=== PATIENT | female | born 1945 | race Caucasian/White ===

== ENCOUNTER 2017-05-05 08:54 | Outpatient (CLI) | payer MEDICARE, BC ==
[~2017-05-05 08:54] MED LIST: CALC-829 PO; CHOL400T PO; DOCU-28 PO; OMEP40CA37 PO; SYN0.088T PO; [UNRECOGNIZED DRUG - CODE] PO
[2017-05-05 09:50] LABS: BASOPHILS % (AUTO) 0.3 % (0-1); EOSINOPHILS # (AUTO) 0.2 X10'3 (0-0.9); EOSINOPHILS % (AUTO) 2.6 % (0-6); HEMATOCRIT 39.3 % (35.0-45.0); HEMOGLOBIN 13.1 g/dl (12.0-16.0); LYMPHOCYTES # (AUTO) 1.8 X10'3 (1.1-4.8); MEAN CORPUSCULAR HEMOGLOBIN 28.8 PG (27.0-31.0); MEAN CORPUSCULAR HGB CONC 33.3 % (33.0-36.5); MEAN CORPUSCULAR VOLUME 86.5 FL (78-98); MEAN PLATELET VOLUME 8.7 FL (7.4-10.4); MONOCYTES # (AUTO) 0.4 X10'3 (0-0.9); MONOCYTES % (AUTO) 6.1 % (2-12); NEUTROPHILS # (AUTO) 4.4 X10'3 (1.8-7.7); PLATELET COUNT 275 X10'3 (140-440); RED BLOOD COUNT 4.54 X10'6 (4.20-5.60); RED CELL DISTRIBUTION WIDTH 13.5 % (11.5-14.5); WHITE BLOOD COUNT 6.8 X10'3 (4.5-11.0)
[2017-05-05 10:38] LABS: ALANINE AMINOTRANSFERASE 26 U/L (12-78); ALBUMIN 3.8 G/DL (3.4-5.0); ALBUMIN/GLOBULIN RATIO 1.2 (1.1-1.5); ALKALINE PHOSPHATASE 91 IU/L (46-116); ASPARTATE AMINO TRANSFERASE 18 U/L (10-37); BILIRUBIN,TOTAL 0.6 MG/DL (0.1-1.0); BLOOD UREA NITROGEN 17 MG/DL (7-18); BUN/CREATININE RATIO 18.9 (6.6-38.0); CHLORIDE 106 MMOL/L (99-107); GLUCOSE 97 MG/DL (70-104); POTASSIUM 4.1 MMOL/L (3.5-5.1); TOTAL CARBON DIOXIDE 27.4 MMOL/L (24-32); TOTAL PROTEIN 6.9 G/DL (6.4-8.2); eGFR 61 ML/MIN
[2017-05-05 10:41] LABS: ANION GAP 6 (8-16); SODIUM 139 MMOL/L (135-145)
[2017-05-05 11:44] LABS: CLARITY,URINE TURBID (Clear); COLOR,URINE YELLOW (Yellow); GLUCOSE, URINE NEGATIVE (Neg); KETONES,URINE NEGATIVE (Neg); LEUKOCYTE ESTERASE ,URINE MODERATE (Neg); NITRITES, URINE NEGATIVE (Neg); OCCULT BLOOD,URINE TRACE-INTACT (Neg); PH,URINE 5.5 (4.8-8.0); PROTEIN,URINE TRACE mg/dl (Neg)
[2017-05-05 11:48] LABS: UA COLLECTION TYPE CLN CATCH MIDSTREAM
[2017-05-05 11:50] LABS: MUCUS STRANDS MANY /LPF (Neg); SQUAMOUS EPITHELIAL CELL,UR MANY /LPF (FEW)
[2017-05-05 11:54] LABS: TRANSITIONAL EPI CELLS,URINE FEW /HPF; WBC CLUMPS,URINE FEW /HPF (NEGATIVE)
[2017-05-05 11:55] LABS: AMORPHOUS URATES 1+; BACTERIA,URINE FEW /HPF (Neg); RBC,URINE 0-2 /HPF (0-2); WBC,URINE 30-50 /HPF (0-4)
== END 2017-05-05 23:59 | disposition home or self-care (01) ==
LOC: LAB 08:54
PROVIDERS: ATTEND Specialist
DX: Z01.818 Encounter for other preprocedural examination (principal); N39.0 Urinary tract infection, site not specified; Z51.81 Encounter for therapeutic drug level monitoring; Z90.89 Acquired absence of other organs; Z90.710 Acquired absence of both cervix and uterus
CPT/HCPCS: 36415; 80053; 81001; 85025; 85610; 87070

== ENCOUNTER 2017-05-19 05:17 | Inpatient (IN) | payer MEDICARE, BC ==
[~2017-05-19] VITALS: Ht 165.1 cm; Wt 95.0 kg
[2017-05-19] VITALS (19 sets, daily range): BP systolic 84–124; BP diastolic 36–80
[~2017-05-19 05:17] MED LIST changes: -CHOL400T PO; +LEVO125T PO; -OMEP40CA37 PO; -SYN0.088T PO; +SYN0.112T PO; +ringers solution, lacted 1,000 ML IV SCH
[2017-05-19] MEDS ORDERED: famotidine 20mg tablet PO ONE (05:30)
[2017-05-19] MEDS ORDERED: gabapentin 300mg capsule PO ONE (05:30)
[2017-05-19] MEDS ORDERED: acetaminophen 325mg tablet PO ONE (05:30)
[2017-05-19] MEDS ORDERED: oxyCODONE SR 10mg (sust. release) tab PO ONE (05:30)
[2017-05-19] MEDS ORDERED: tranexamic acid inj. 1,000 MG in normal saline 100ml IV soln 90 ML IV ONE (05:30)
[2017-05-19] MEDS ORDERED: ceFAZolin 2gm in dextrose, iso 100 ML IV ONE (05:30)
[2017-05-19] MEDS ORDERED: vancomycin inj 1,500 MG in normal saline 300ml IV soln IV ONE (05:30)
[2017-05-19] MEDS ORDERED: LIDOcaine 1% (10mg/ml) 2ml vial ONE (06:04)
[2017-05-19] MEDS ORDERED: ROPIVAcaine 0.5% (5mg/ml) 30ml vial ONE ×2 (06:36→09:14)
[2017-05-19] MEDS ORDERED: bacitracin inj 150,000 UNIT in sodium chloride irrig. sol 3,000 ML IR ONE (07:00)
[2017-05-19] MEDS ORDERED: MORPHINE SULFATE/PF 0.5 MG/ML 10ML AMPUL ONE (07:24)
[2017-05-19] MEDS ORDERED: tetracaine 1% (10mg/ml) pres. free inj. ONE (07:24)
[2017-05-19] MEDS ORDERED: fentaNYL/PF 50MCG/1 ML 2ML syringe ONE (07:27)
[2017-05-19] MEDS ORDERED: MIDAZolam 1mg/ml 10ml vial ONE (07:27)
[2017-05-19] MEDS ORDERED: naloxone 2mg/2ml inj 2 MG in normal saline 500ml IV soln 500 ML IV PRN (08:48)
[2017-05-19] MEDS ORDERED: ringers solution, lacted 1,000 ML IV SCH (08:48)
[2017-05-19] MEDS ORDERED: ondansetron/PF 4mg/2ml inj IV PRN ×3 (08:50→09:50)
[2017-05-19] MEDS ORDERED: proCHLORperazine 10 MG/2 ml inj IV PRN (08:50)
[2017-05-19] MEDS ORDERED: meperidine/PF 25mg/ml syringe IV PRN ×3 (08:50)
[2017-05-19] MEDS ORDERED: diphenhydrAMINE 50 mg/ml inj IV PRN (08:50)
[2017-05-19] MEDS ORDERED: ceFAZolin 1000mg inj ONE (09:09)
[2017-05-19] MEDS ORDERED: propofol inj 20 ML IV ONE (09:10)
[2017-05-19] MEDS ORDERED: cloNIDine hcl/PF 100mcg/ml inj ONE (09:14)
[2017-05-19] MEDS ORDERED: diphenhydrAMINE 25mg capsule PO PRN ×2 (09:50)
[2017-05-19] MEDS ORDERED: bisacodyl 10mg suppository rectal RC PRN (09:50)
[2017-05-19] MEDS ORDERED: acetaminophen 325mg tablet PO PRN (09:50)
[2017-05-19] MEDS ORDERED: magnesium hydroxide 30ml (MOM) UD suspension PO PRN (09:50)
[2017-05-19] MEDS ORDERED: HYDROmorphone 1 mg/ml syringe IV PRN (09:50)
[2017-05-19] MEDS: potassium cl 20mEq in 1/2 NS 1,000 ML IV SCH ×3 (11:20→20:10)
[2017-05-19] MEDS: acetaminophen 325mg tablet PO SCH ×2 (13:04→20:06)
[2017-05-19] MEDS: docusate sod 100mg capsule PO SCH ×3 (13:04→20:06)
[2017-05-19] MEDS: gabapentin 300mg capsule PO SCH ×2 (13:04→20:06)
[2017-05-19] MEDS: cefazolin 1gm/NS 100mL 100 ML IV SCH (15:42)
[2017-05-19] MEDS ORDERED: vancomycin/NS 1 GM ADD-VANTAGE 250 ML IV SCH (20:00)
[2017-05-19] MEDS: ascorbic acid 500mg tablet PO SCH (20:06)
[2017-05-19] MEDS: sennosides 8.6mg tablet PO SCH (20:06)
[2017-05-20] MEDS: cefazolin 1gm/NS 100mL 100 ML IV SCH (00:30)
[2017-05-20 02:00] VITALS: BP 80/41
[2017-05-20] MEDS: acetaminophen 325mg tablet PO SCH ×4 (02:00→20:27)
[2017-05-20] MEDS: potassium cl 20mEq in 1/2 NS 1,000 ML IV SCH ×3 (05:01→16:08)
[2017-05-20] MEDS: oxyCODONE IR 5mg (immed. release) tablet PO PRN ×3 (05:01→14:33)
[2017-05-20 06:00] VITALS: BP 92/39
[2017-05-20 06:19] LABS: BASOPHILS % (AUTO) 0.6 % (0-1); EOSINOPHILS # (AUTO) 0.4 X10'3 (0-0.9); EOSINOPHILS % (AUTO) 5.2 % (0-6); HEMATOCRIT 33.9 % (35.0-45.0); HEMOGLOBIN 11.3 g/dl (12.0-16.0); LYMPHOCYTES # (AUTO) 1.2 X10'3 (1.1-4.8); LYMPHOCYTES % (AUTO) 18.3 % (21-51); MEAN CORPUSCULAR HEMOGLOBIN 28.7 PG (27.0-31.0); MEAN CORPUSCULAR HGB CONC 33.3 % (33.0-36.5); MEAN CORPUSCULAR VOLUME 86.1 FL (78-98); MEAN PLATELET VOLUME 9.1 FL (7.4-10.4); MONOCYTES # (AUTO) 0.5 X10'3 (0-0.9); MONOCYTES % (AUTO) 6.8 % (2-12); NEUTROPHILS # (AUTO) 4.7 X10'3 (1.8-7.7); NEUTROPHILS % (AUTO) 69.1 % (42-75); PLATELET COUNT 200 X10'3 (140-440); RED BLOOD COUNT 3.93 X10'6 (4.20-5.60); RED CELL DISTRIBUTION WIDTH 13.4 % (11.5-14.5); WHITE BLOOD COUNT 6.8 X10'3 (4.5-11.0)
[2017-05-20 06:33] LABS: INR 1.2 INR; PROTHROMBIN TIME 12.8 SECONDS (9.0-12.0)
[2017-05-20 06:41] LABS: ANION GAP 7 (8-16); CHLORIDE 105 MMOL/L (99-107); POTASSIUM 4.5 MMOL/L (3.5-5.1); SODIUM 140 MMOL/L (135-145); TOTAL CARBON DIOXIDE 28.5 MMOL/L (24-32)
[2017-05-20] MEDS: levoTHYROXINE 112mcg tablet PO SCH (07:33)
[2017-05-20] MEDS: ascorbic acid 500mg tablet PO SCH ×2 (07:33→20:27)
[2017-05-20] MEDS: docusate sod 100mg capsule PO SCH ×4 (07:34→20:27)
[2017-05-20] MEDS: anastrozole 1 MG tablet PO SCH (07:34)
[2017-05-20] MEDS: gabapentin 300mg capsule PO SCH ×3 (07:34→20:26)
[2017-05-20] MEDS: multivitamins, therapeutics tablet PO SCH (07:34)
[2017-05-20 10:00] VITALS: BP 121/55
[2017-05-20] MEDS ORDERED: warfarin 7.5mg tablet PO ONE (10:00)
[2017-05-20 14:00] VITALS: BP 152/66
[2017-05-20 18:30] VITALS: BP 111/50
[2017-05-20] MEDS: sennosides 8.6mg tablet PO SCH (20:27)
[2017-05-20 22:00] VITALS: BP 145/70
[2017-05-21] MEDS: acetaminophen 325mg tablet PO SCH ×2 (02:00→08:30)
[2017-05-21] MEDS: oxyCODONE IR 5mg (immed. release) tablet PO PRN ×4 (03:38→20:10)
[2017-05-21 06:00] VITALS: BP 142/67
[2017-05-21 06:22] LABS: BASOPHILS % (AUTO) 0.4 % (0-1); EOSINOPHILS # (AUTO) 0.4 X10'3 (0-0.9); EOSINOPHILS % (AUTO) 5.1 % (0-6); HEMATOCRIT 33.6 % (35.0-45.0); HEMOGLOBIN 11.5 g/dl (12.0-16.0); LYMPHOCYTES # (AUTO) 1.2 X10'3 (1.1-4.8); LYMPHOCYTES % (AUTO) 14.6 % (21-51); MEAN CORPUSCULAR HEMOGLOBIN 29.1 PG (27.0-31.0); MEAN CORPUSCULAR HGB CONC 34.3 % (33.0-36.5); MEAN CORPUSCULAR VOLUME 84.8 FL (78-98); MEAN PLATELET VOLUME 8.9 FL (7.4-10.4); MONOCYTES # (AUTO) 0.6 X10'3 (0-0.9); MONOCYTES % (AUTO) 7.7 % (2-12); NEUTROPHILS # (AUTO) 5.8 X10'3 (1.8-7.7); NEUTROPHILS % (AUTO) 72.2 % (42-75); PLATELET COUNT 207 X10'3 (140-440); RED BLOOD COUNT 3.96 X10'6 (4.20-5.60); RED CELL DISTRIBUTION WIDTH 13.4 % (11.5-14.5)
[2017-05-21 06:27] LABS: INR 1.5 INR; PROTHROMBIN TIME 15.6 SECONDS (9.0-12.0)
[2017-05-21] MEDS ORDERED: warfarin 5mg tablet PO ONE (07:00)
[2017-05-21] MEDS: gabapentin 300mg capsule PO SCH ×3 (07:26→20:10)
[2017-05-21] MEDS: docusate sod 100mg capsule PO SCH ×4 (07:26→20:10)
[2017-05-21] MEDS: ascorbic acid 500mg tablet PO SCH ×2 (07:27→20:10)
[2017-05-21] MEDS: multivitamins, therapeutics tablet PO SCH (07:27)
[2017-05-21] MEDS: anastrozole 1 MG tablet PO SCH (07:28)
[2017-05-21] MEDS ORDERED: levoTHYROXINE 125mcg tablet PO SCH (08:00)
[2017-05-21] MEDS ORDERED: levoTHYROXINE 112mcg tablet PO SCH (08:00)
[2017-05-21] MEDS ORDERED: acetaminophen 325mg tablet PO PRN (09:50)
[2017-05-21 11:00] VITALS: BP 148/77
[2017-05-21 18:30] VITALS: BP 138/69
[2017-05-21] MEDS: sennosides 8.6mg tablet PO SCH (20:10)
[2017-05-21 22:00] VITALS: BP 116/52
[2017-05-22 06:00] VITALS: BP 132/64
[2017-05-22 06:04] LABS: BASOPHILS % (AUTO) 0.1 % (0-1); EOSINOPHILS # (AUTO) 0.4 X10'3 (0-0.9); EOSINOPHILS % (AUTO) 5.5 % (0-6); HEMATOCRIT 32.6 % (35.0-45.0); HEMOGLOBIN 11.2 g/dl (12.0-16.0); LYMPHOCYTES # (AUTO) 1.7 X10'3 (1.1-4.8); LYMPHOCYTES % (AUTO) 21.6 % (21-51); MEAN CORPUSCULAR HEMOGLOBIN 28.8 PG (27.0-31.0); MEAN CORPUSCULAR HGB CONC 34.3 % (33.0-36.5); MEAN PLATELET VOLUME 8.4 FL (7.4-10.4); MONOCYTES # (AUTO) 0.8 X10'3 (0-0.9); MONOCYTES % (AUTO) 9.8 % (2-12); PLATELET COUNT 228 X10'3 (140-440); RED BLOOD COUNT 3.89 X10'6 (4.20-5.60); RED CELL DISTRIBUTION WIDTH 13.6 % (11.5-14.5); WHITE BLOOD COUNT 7.9 X10'3 (4.5-11.0)
[2017-05-22 06:38] LABS: INR 1.5 INR; PROTHROMBIN TIME 15.7 SECONDS (9.0-12.0)
[2017-05-22] MEDS: docusate sod 100mg capsule PO SCH (08:09)
[2017-05-22] MEDS: gabapentin 300mg capsule PO SCH (08:09)
[2017-05-22] MEDS: levoTHYROXINE 112mcg tablet PO SCH (08:09)
[2017-05-22] MEDS: ascorbic acid 500mg tablet PO SCH (08:09)
[2017-05-22] MEDS: multivitamins, therapeutics tablet PO SCH (08:09)
[2017-05-22] MEDS: anastrozole 1 MG tablet PO SCH (08:10)
[2017-05-22] MEDS ORDERED: ASPI-1264 PO (08:16)
[2017-05-22] MEDS ORDERED: warfarin 5mg tablet PO ONE (10:00)
== END 2017-05-22 10:45 | disposition home health service (06) | DRG 470 ==
LOC: PAS IN 05:17 → EDSTATUS 07:30 → ORTHO 4S 11:08
PROVIDERS: ADMIT Specialist; ATTEND Specialist
PROC: 3E0T3BZ Introduction of Anesthetic Agent into Peripheral Nerves and Plexi, Percutaneous Approach (ICD-10-PCS; 2017-05-19)
PROC: 0SRD0J9 Replacement of Left Knee Joint with Synthetic Substitute, Cemented, Open Approach (ICD-10-PCS; principal; 2017-05-19 07:24)
DX: M17.12 Unilateral primary osteoarthritis, left knee (principal); D62 Acute posthemorrhagic anemia; E03.9 Hypothyroidism, unspecified; M21.162 Varus deformity, not elsewhere classified, left knee; Z96.642 Presence of left artificial hip joint; Z96.651 Presence of right artificial knee joint; Z90.710 Acquired absence of both cervix and uterus; Z79.899 Other long term (current) drug therapy; Z79.01 Long term (current) use of anticoagulants; Z92.3 Personal history of irradiation; Z85.22 Personal history of malignant neoplasm of nasal cavities, middle ear, and accessory sinuses; Z85.3 Personal history of malignant neoplasm of breast; Z85.72 Personal history of non-Hodgkin lymphomas; Z85.850 Personal history of malignant neoplasm of thyroid
CPT/HCPCS: 36415; 73560; 80051; 85025; 85610; 97110; 97116; 97162; 97530; A6449; A6455; A7000; C1713; C1758; C1776; J0690; J0735; J1170; J2250; J2274; J2310; J2405; J2704; J2795; J3010; J3370; J3490; J7030; J7120